=== PATIENT | male | born 1975 | race Caucasian/White ===

== ENCOUNTER 2017-10-05 17:52 | Emergency (ER) | payer OTHER ==
[2017-10-05 18:18] VITALS: BP 143/80; PULSE 96; TEMP 98.5; BMI 32.7
--- NOTE | 2017-10-05 18:19 | PDOC ---
Rapid Medical Evaluation Time Seen by Provider: 10/05/17 18:03 Medical Evaluation: Allergies Allergy/AdvReac Type Severity Reaction Status Date / Time No Known Allergies Allergy Verified 10/05/17 18:16 10/05/17 18:16 Pt with PMH of arthritis in his spine, receiving pain injections. presents to the ED with L leg numbness and L foot pain. Pt states that he was trying to get out of bed yesterday when his leg was asleep and he fell. Exam: Decreased sensation to the L medial foot inner leg. No gross motor deficit. Ambulatory Orders: nothing Pt to proceed to the ED for further evaluation Discharge Disposition - Diagnosis Left leg pain - Referrals - Patient Instructions - Post Discharge Activity
--- NOTE | 2017-10-05 19:01 | PDOC ---
History of Present Illness - General Chief Complaint: Pain Stated Complaint: LT LEG PAIN/DIZZINESS Time Seen by Provider: 10/05/17 18:03 - History of Present Illness Initial Comments: 10/05/17 18:48 CHIEF COMPLAINT: back pain, leg pain HISTORY OF PRESENT ILLNESS: 41 yo M with significant PMH of chronic low back pain and neuropathy presents to ED with left foot pain s/p fall two days ago. Patient states "I've been having worsening left leg pain radiating from my back and the other day I didn't realize my leg was numb and when I got up I fell down and twisted my foot. PAST MEDICAL HISTORY: Denies past medical history FAMILY HISTORY: Denies SOCIAL HISTORY: Denies tobacco, alcohol, illicit drug use. SURGICAL HISTORY: Denies ALLERGIES: No known drug allergies REVIEW OF SYSTEMS General/Constitutional: Denies fever or chills. Denies weakness. HEENT: Denies change in vision. Denies ear pain or discharge. Denies sore throat. Cardiovascular: Denies chest pain or shortness of breath. Respiratory: Denies cough, wheezing, or hemoptysis. Gastrointestinal: Denies nausea, vomiting, diarrhea or constipation. Denies rectal bleeding. Genitourinary: Denies dysuria, frequency, or change in urination. Musculoskeletal: Chronic low back pain Skin and breasts: Denies rash or easy bruising. Neurologic: Denies headache, vertigo, loss of consciousness, or loss of sensation. PHYSICAL EXAM General Appearance: Well-appearing, appropriately dressed. No apparent distress. HEENT: EOMI, PERRLA. No conjunctival pallor. No photophobia, scleral icterus. Respiratory/Chest: Lungs CTAB. Cardiovascular: RRR. S1, S2. Vascular Pulses: Dorsalis-Pedis (R): 2+, Dorsalis-Pedis (L): 2+ Gastrointestinal/Abdominal: Normal bowel sounds. Abdomen soft, non-distended. No tenderness or rebound tenderness. No organomegaly, pulsatile mass, guarding , hernia, hepatomegaly, splenomegaly. Musculoskeletal/Extremities: Mild tenderness at base of 5th metatarsal. No swelling, ecchymosis, erythema. Normal inspection. FROM of all extremities, normal capillary refill. Pelvis Stable. No CVA tenderness. No tenderness to extremities, pedal edema, swelling, erythema or deformity. Integumentary: Appropriate color, dry, warm. No cyanosis, erythema, jaundice or rash Neurologic: custodian supervisor II-XII intact. Fully oriented, alert. Appropriate mood/affect. Motor strength 5/5. No appreciable EOM palsy, facial droop or sensory deficit. Past History - Past Medical History Allergies/Adverse Reactions: Allergies Allergy/AdvReac Type Severity Reaction Status Date / Time No Known Allergies Allergy Verified 10/05/17 18:16 Home Medications: Ambulatory Orders Alprazolam [Alprazolam ER] 3 mg PO ASDIR 10/05/17 Amlodipine Besylate [Norvasc -] 5 mg PO DAILY 10/05/17 Citalopram Hydrobromide [Celexa -] 20 mg PO DAILY 10/05/17 Diclofenac Sodium 50 mg PO BID #20 tablet. 10/05/17 Oxycodone HCl/Acetaminophen [Endocet 10-325 mg Tablet] 1 each PO ASDIR 10/05/17 Tizanidine HCl 4 mg PO ASDIR 10/05/17 - Suicide/Smoking/Psychosocial Hx Smoking History: Current every day smoker Number of Cigarettes Smoked Daily: 20 Information on smoking cessation initiated: No *Physical Exam - Vital Signs Last Vital Signs Temp Pulse Resp BP Pulse Ox 98.5 F 96 H 18 143/80 100 10/05/17 18:16 10/05/17 18:16 10/05/17 18:16 10/05/17 18:16 10/05/17 18:16 ED Treatment Course - RADIOLOGY Radiology Studies Ordered: Category Date Time Status ANKLE & FOOT-LEFT* [RAD] Stat Radiology 10/05/17 18:43 Ordered Medical Decision Making - Medical Decision Making 10/05/17 19:01 41 yo M with significant PMH of chronic low back pain and neuropathy presents to ED with left foot pain s/p fall two days ago. -ankle/foot x-ray Patient is on chronic pain meds and followed by pain mgmt, INDUSTRIAL ORDER CLERK referenced and patient received 30 day supply of Percocet, will not rx any narcotics. *DC/Admit/Observation/Transfer Diagnosis at time of Disposition: Left leg pain - Discharge Dispostion Disposition: HOME Condition at time of disposition: Stable Decision to Admit order: No - Prescriptions Prescriptions: Diclofenac Sodium 50 mg PO BID #20 tablet. - Referrals Referrals: Roberto Bailey MD [Staff Physician] - - Patient Instructions Printed Discharge Instructions: DI for Foot Pain Additional Instructions: Your x-rays today were negative for fracture or dislocation. Please take medication as prescribed. Please follow up with orthopedics and pain management for continued evaluation and treatment for your chronic back pain. If you develop any loss of bowel or bladder function, or are unable to walk due to loss of sensation in your lower extremities, please return to the ER. - Post Discharge Activity
[2017-10-05] MEDS ORDERED: KETOROLAC TROMETHAMINE 60 MG/2 ML VIAL IM ONE (19:31)
[2017-10-05] MEDS ORDERED: KETOROLAC TROMETHAMINE 60 MG/2 ML VIAL ONE (19:39)
== END 2017-10-05 19:44 | disposition home or self-care (01) ==
LOC: JERFT 17:52
PROC: 3E0233Z Introduction of Anti-inflammatory into Muscle, Percutaneous Approach (ICD-10-PCS; principal; 2017-10-05)
DX: M79.605 Pain in left leg (principal); F17.210 Nicotine dependence, cigarettes, uncomplicated; W18.39XA Other fall on same level, initial encounter; Y93.89 Activity, other specified; Y92.9 Unspecified place or not applicable
CPT/HCPCS: 73610-TC-LT-FY; 73630-TC-LT; 99281-25

== ENCOUNTER 2024-10-22 16:07 | Emergency (ER) | payer OTHER ==
[2024-10-22 16:39] VITALS: BP 110/56; TEMP 99.2; BMI 38.9
[2024-10-22] MEDS ORDERED: KETOROLAC TROMETHAMINE 30 MG/1 ML VIAL ONE (18:19)
[2024-10-22] MEDS ORDERED: CEPHALEXIN MONOHYDRATE 500 MG CAPSULE (UD) ONE (18:19)
[2024-10-22] MEDS: KETOROLAC TROMETHAMINE 30 MG/1 ML VIAL IM ONE (18:26)
[2024-10-22] MEDS ORDERED: TETRACAINE 0.5% OPHTH SOLN 2 ML BOTTLE ONE (18:52)
[2024-10-22] MEDS: CEPHALEXIN MONOHYDRATE 500 MG CAPSULE (UD) PO ONE (18:54)
[2024-10-22 19:31] VITALS: PULSE 98; RESP 18
== END 2024-10-22 19:31 | disposition home or self-care (01) ==
LOC: JER 16:07
PROC: 0Y903ZZ Drainage of Right Buttock, Percutaneous Approach (ICD-10-PCS; principal; 2024-10-22)
PROC: 3E0233Z Introduction of Anti-inflammatory into Muscle, Percutaneous Approach (ICD-10-PCS; 2024-10-22)
DX: L02.31 Cutaneous abscess of buttock (principal)
CPT/HCPCS: 10060; 96372; 99284-25

== ENCOUNTER 2024-10-24 10:07 | Emergency (ER) | payer OTHER ==
[2024-10-24 10:34] VITALS: BP 125/74; PULSE 109; RESP 18; TEMP 98.5; BMI 38.9
[2024-10-24] MEDS ORDERED: BACITRACIN ZINC 15 GM TUBE TOPICAL OINTMENT ONE (11:55)
[2024-10-24] MEDS: BACITRACIN 0.9 GM PACKET TP ONE (12:03)
== END 2024-10-24 12:04 | disposition home or self-care (01) ==
LOC: JERFT 10:07 → JER 10:07 → JERFT 12:04
DX: Z48.01 Encounter for change or removal of surgical wound dressing (principal)
CPT/HCPCS: 99281-25